=== PATIENT | male | born 1960 | race Two or more races ===

== ENCOUNTER 2020-04-16 08:09 | Emergency (ER) | payer SELFPAY ==
[~2020-04-16] VITALS: Ht 180.3 cm; Wt 78.6 kg
[2020-04-16 08:15] VITALS: BP 126/92
--- NOTE | 2020-04-16 09:00 | NUR ---
B[employer]ING [employer]: PT TO ROOM FROM LOBBY GAIT SLOW AND STEADY
[2020-04-16] MEDS ORDERED: IBUPROFEN 200 MG TABLET PO ONE (09:30)
[2020-04-16] MEDS ORDERED: IBUPROFEN 200 MG TABLET ONE (09:40)
--- NOTE | 2020-04-16 09:50 | NUR ---
PT PRESENTS TO ED WITH C/O LEFT ANKLE PAIN WHICH IS CHRONIC IN NATURE. PT IS A&O, RESPS EVEN AND UNLABORED. PT ALSO REQUESTING FOOD. AT BESIDE. XRAY COMPLETED, PT MEDICATED, PT GIVEN SANDWICH. PT AWAITING XR RESULTS AND DISPO.
== END 2020-04-16 10:04 | disposition home or self-care (01) ==
LOC: ED 09:50
DX: M19.072 Primary osteoarthritis, left ankle and foot (principal); G89.29 Other chronic pain; Z59.0 Homelessness
CPT/HCPCS: 99283